=== PATIENT | male | born 1930 | race Caucasian/White ===

== ENCOUNTER 2017-05-02 23:29 | Emergency (ER) | payer MEDICARE, OTHER ==
[~2017-05-02 23:29] MED LIST: Diazepam 2 MG Tab PO ONE
[2017-05-03] MEDS ORDERED: Diazepam 2 MG Tab PO ONE (00:04)
--- NOTE | 2017-05-03 00:10 | EDM.PDOC ---
ED HPI GENERAL MEDICAL PROBLEM - General Chief Complaint: Neuro Symptoms/Deficits Stated Complaint: DIZZINESS Time Seen by Provider: 05/02/17 23:45 Source of Information: Reports: Patient, Family History Limitations: Reports: No Limitations - History of Present Illness INITIAL COMMENTS - FREE TEXT/NARRATIVE: Kristopher reports a PMH of chronic vertigo and consultation in the [facility] for therapy in the past. He usually manages his relapses with recumbency and rest, but this evening the vertigo seemed especially severe. He could not stand or sit, and crawled to the sofa. His son was summoned out of concern for a possible stroke, and was brought to [facility] ED for assessment. At this time, he is currently asx. He has tried no meds. - Related Data Allergies Allergy/AdvReac Type Severity Reaction Status Date / Time acetaminophen Allergy Severe Dizziness Verified 05/03/17 00:12 [From Darvocet-N 100] propoxyphene napsylate Allergy Severe Dizziness Verified 05/03/17 00:12 [From Darvocet-N 100] Home Meds: Home Meds Losartan [Cozaar] 50 mg PO DAILY 07/01/13 [History] Omeprazole [Prilosec] 20 mg PO 07/01/13 [History] Krill Oil 500 mg PO DAILY 07/02/13 [History] Multivitamin [Multi-Vitamin Daily] 1 PO DAILY 07/02/13 [History] Aspirin [Lite Coat Aspirin] 325 mg PO DAILY 07/04/13 [History] Hydrocodone/Acetaminophen [Lorcet 10-650] 1 tab PO Q4H PRN 07/04/13 [History] Hydrocodone/Acetaminophen [Hydrocodon-Acetaminophen 5-300] 1 each PO Q6HR PRN # 8 tablet #8 Samples 07/05/13 [Rx] Ondansetron [Ondansetron ODT] 4 mg PO Q8HR PRN #4 tab.rapdis #4 Samples [Rx] Past Medical History Cardiovascular History: Reports: CAD, High Cholesterol, Hypertension, Stents ( plavix), Other (See Below) Neurological History: Reports: Vertigo Social & Family History - Tobacco Use Smoking Status *Q: Never Smoker Second Hand Smoke Exposure: No - Recreational Drug Use Recreational Drug Use: No ED ROS GENERAL - Review of Systems Review Of Systems: See Below Constitutional: Reports: No Symptoms HEENT: Reports: Hearing Loss, Vertigo Respiratory: Reports: No Symptoms Cardiovascular: Reports: No Symptoms Endocrine: Reports: No Symptoms GI/Abdominal: Reports: No Symptoms : Reports: No Symptoms Musculoskeletal: Reports: No Symptoms Skin: Reports: No Symptoms Neurological: Reports: Dizziness Psychiatric: Reports: No Symptoms Hematologic/Lymphatic: Reports: No Symptoms Immunologic: Reports: No Symptoms ED EXAM, DIZZINESS - Physical Exam Exam: See Below Exam Limited By: No Limitations General Appearance: Alert, WD/WN, No Apparent Distress Eye Exam: Bilateral Eye: EOMI, Normal Inspection, PERRL Nystagmus: worsens with head to L, reproducible Ears: Normal External Exam, Normal Canal, Hearing Loss Nose: Normal Inspection Throat/Mouth: Normal Inspection, Normal Oropharynx Head Exam: Normocephalic Vertigo: worsens with head to L Neck: Normal Inspection, Supple, Non-Tender Respiratory/Chest: Lungs Clear, Normal Breath Sounds Cardiovascular: Regular Rate, Rhythm, No Edema, No Gallop, No JVD GI/Abdominal: Normal Bowel Sounds, Soft, No Organomegaly, No Distention, No Mass Neurological: Alert, Normal Mood/Affect, Normal Dorsiflexion, CN II-XII Intact, Normal Plantar Flexion, Normal Gait, No Motor/Sensory Deficits, Oriented x 3 Back Exam: Normal Inspection Extremities: Normal Inspection Psychiatric: Normal Affect, Normal Mood Skin Exam: Warm, Dry Course - Vital Signs Text/Narrative:: Kristopher remained stable at the [facility] ED. I dispensed 1 0.5 mg Valium tab for HS upon return home tonight. - Orders/Labs/Meds Meds: Medications Discontinued Medications Generic Name Dose Route Start Last Admin Trade Name Angel PRN Reason Stop Dose Admin Diazepam 0.5 mg 05/03/17 00:04 Valium PO 05/03/17 00:05 ONETIME ONE Departure - Departure Time of Disposition: 00:12 Disposition: Home, Self-Care 01 Condition: Good Clinical Impression: Vertigo - Discharge Information - Problem List & Annotations (1) Vertigo SNOMED Code(s): 114555505 Code(s): R42 - DIZZINESS AND GIDDINESS Status: Acute Annotation/Comment: : Chronic vertigo with exacerbation tonight. He will take valium 0.5 mg tab at tonight, and follow up with PCP. - Problem List Review Problem List Initiated/Reviewed/Updated: Yes - Assessment/Plan Plan: Follow up with PCP.
[2017-05-03 00:12] VITALS: BP 114/75
== END 2017-05-03 00:42 | disposition home or self-care (01) ==
LOC: FB.ED 23:29
DX: R42 Dizziness and giddiness (principal); E78.00 Pure hypercholesterolemia, unspecified; I25.10 Atherosclerotic heart disease of native coronary artery without angina pectoris; I10 Essential (primary) hypertension; Z88.8 Allergy status to other drugs, medicaments and biological substances; Z79.899 Other long term (current) drug therapy; Z79.82 Long term (current) use of aspirin
CPT/HCPCS: 99284; A9270; 99283